=== PATIENT | female | born 2000 | race African-American/Black ===

== ENCOUNTER 2023-05-01 01:31 | Emergency (ER) | payer MEDICAID ==
[~2023-05-01] VITALS: Ht 162.6 cm; Wt 52.1 kg
[2023-05-01 01:45] VITALS: O2SAT 99
[2023-05-01] MEDS ORDERED: FLUORESCEIN SODIUM 1MG/STRIP BOTHEYE ONE (03:30)
[2023-05-01] MEDS ORDERED: TETRACAINE 0.5% OPHTH DROPS 4ML BOTHEYE ONE (03:30)
[2023-05-01] MEDS ORDERED: KETOROLAC 30MG/ML VIAL IM ONE (03:30)
[2023-05-01 03:46] VITALS: BP 134/78
[2023-05-01] MEDS ORDERED: NAPR-681 MT (06:03)
[2023-05-01] MEDS ORDERED: ACET-2708 MT (06:03)
[2023-05-01 06:26] VITALS: PULSE 127; RESP 18; TEMP 98.1
== END 2023-05-01 06:27 | disposition home or self-care (01) ==
LOC: ER 01:31
DX: H11.32 Conjunctival hemorrhage, left eye (principal); S05.12XA Contusion of eyeball and orbital tissues, left eye, initial encounter; Y04.0XXA Assault by unarmed brawl or fight, initial encounter; Y93.89 Activity, other specified; Y92.89 Other specified places as the place of occurrence of the external cause; Y99.8 Other external cause status
CPT/HCPCS: 99285; 70450; 81025; 70486; 96372; J1885